=== PATIENT | male | born 1980 | race Caucasian/White ===

== ENCOUNTER 2019-05-20 07:40 | Outpatient (CLI) | payer MEDICARE, MEDICAID, SELFPAY ==
--- NOTE | 2019-05-20 07:53 | CT_ITS ---
WS: [id number] CT ABDOMEN NON-CONTRAST PLUS CONTRAST TECHNIQUE: Noncontrast CT of the abdomen and contrast-enhanced CT of the abdomen with coronal and sag ittal reformatted images. CLINICAL INFORMATION: RENAL MASS RIGHT COMPARISON: MRI DLP: [id number] scans at [facility] use at least one of these dose optimization techniques: automat ed exposure control; mA and/or kV adjustment per patient size (includes targeted exams where dose is matched to clinical indication); or iterative reconstruction. FINDINGS: Again seen is the right renal subcapsular fluid collection. This measures approximately 2.8 x 5.2 x 7 .7 cm AP by transverse by craniocaudal and measures slightly smaller compared to the prior lumbar spi ne MRI. This demonstrates increased attenuation on the noncontrast imaging and increased T1 signal on the prior MRI consistent with a subacute hemorrhagic collection. Prior MRI demonstrates hemosiderin rim about the collection. Mild compression of the renal parenchyma. Recommend urology consultation an d CT follow-up to exclude underlying hemorrhagic renal mass. No hydronephrosis. Normal left renal parenchymal enhancement. Both ureters are decompressed. Normal ureteral excretion.S mall left hepatic cyst measuring 10 mm. Liver is otherwise unremarkable. Normal gallbladder. Normal s pleen. Pancreas is normal. Normal caliber abdominal aorta. No abdominal lymphadenopathy. Slight atelectasis right lung base. CT/CT abdomen wo/w con [id number] IMPRESSION: 1. Hemorrhagic right subcapsular fluid collection measures slightly smaller co mpared to the prior MRI. Recommend urology consultation and short interval foll ow-up CT abdomen pelvis in 4-6 weeks to assess resolution and evaluate for unde rlying hemorrhagic renal mass. 2. Otherwise normal bilateral renal parenchymal enhancement with normal ureter al excretion on the delayed images. 3. Small left hepatic cyst. 4. No other acute abdominal findings.
[2019-05-20] MEDS: iohexol 300 mg/mL 100 mL Btl IV (09:01)
== END 2019-05-20 07:41 | disposition home or self-care (01) ==
LOC: RADWPI 07:49
PROVIDERS: Family Provider Physician Assistant Medical; PCP Physician Assistant Medical; Referring Provider Physician Assistant Medical; Visit Provider Licensed Practical Nurse
DX: N28.89 Other specified disorders of kidney and ureter (principal); K76.89 Other specified diseases of liver
CPT/HCPCS: 74170; Q9967

== ENCOUNTER → 2019-06-14 14:13 | Outpatient (BNVA) | payer MEDICARE, MEDICAID, SELFPAY | PROVIDERS: Family Provider Physician Assistant Medical; PCP Physician Assistant Medical; Visit Provider Anesthesiology | DX: M54.9 Dorsalgia, unspecified (principal); Z79.891 Long term (current) use of opiate analgesic | CPT/HCPCS: 99213; 99214 ==

== ENCOUNTER → 2019-09-23 07:28 | Outpatient (BNVA) | payer MEDICARE, MEDICAID, SELFPAY | PROVIDERS: Family Provider Physician Assistant Medical; PCP Physician Assistant Medical; Visit Provider Nurse Practitioner | DX: F41.1 Generalized anxiety disorder (principal); F42.2 Mixed obsessional thoughts and acts | CPT/HCPCS: 99214 ==

== ENCOUNTER 2019-09-26 09:45 | Outpatient (CLI) | payer MEDICARE, MEDICAID, SELFPAY ==
--- NOTE | 2019-09-26 09:30 | US_ITS ---
WS: [id number] RENAL ULTRASOUND HISTORY: HEMATOMA COMPARISON: 05/20/2019 CT. TECHNIQUE: 2-D and color Doppler imaging of the kidney submitted. Right kidney: 11.1 cm x 6.6 cm x 5.4 cm. Normal echogenicity with no hydronephrosis or mass. Previously seen subcapsular hematoma is no longer evident by ultrasound. Left kidney: 11.5 cm x 5.9 cm x 5.2 cm. Normal echogenicity with no hydronephrosis or mass. Aorta: Normal. Urinary Bladder: Normal distention. US/US renal BI* [id number] IMPRESSION: 1. Previously seen subcapsular hematoma on the RIGHT is no longer present. 2. No hydronephrosis or explanation for the patient's acute pain.
--- NOTE | 2019-09-26 12:30 | XR_ITS ---
WS: [id number] ABDOMEN KUB CLINICAL INFORMATION: Renal/ureteral calculi. COMPARISON: CT May 20, 2019 FINDINGS: Lumbar scoliosis convex left. No acute appearing compression fractures. 5 nonrib-bearing lumbar verte bral bodies. No visualized renal parenchymal or ureteral calculi. A few pelvic phleboliths. Normal [place] wel gas pattern. XR/XR KUB [id number] Impression: No visualized renal or ureteral calculi.
== END 2019-09-26 09:46 | disposition home or self-care (01) ==
LOC: RAD 09:52 → RADWPI 12:25
PROVIDERS: PCP Physician Assistant Medical; Visit Provider Urology
DX: R10.9 Unspecified abdominal pain (principal); S37.011A Minor contusion of right kidney, initial encounter; X58.XXXA Exposure to other specified factors, initial encounter
CPT/HCPCS: 74018; 76770; 81001

== ENCOUNTER → 2019-10-05 11:17 | Outpatient (BNVA) | payer MEDICARE, MEDICAID, SELFPAY | PROVIDERS: PCP Physician Assistant Medical; Referring Provider Physician Assistant Medical; Visit Provider Specialist | DX: R20.0 Anesthesia of skin (principal); R29.90 Unspecified symptoms and signs involving the nervous system; S06.9X9A Unspecified intracranial injury with loss of consciousness of unspecified duration, initial encounter; X58.XXXA Exposure to other specified factors, initial encounter; F32.9 Major depressive disorder, single episode, unspecified | CPT/HCPCS: 96116; 99205 ==

== ENCOUNTER → 2019-11-29 07:55 | Outpatient (BNVA) | payer MEDICARE, MEDICAID, SELFPAY | PROVIDERS: PCP Physician Assistant Medical; Visit Provider Nurse Practitioner | DX: F41.1 Generalized anxiety disorder (principal); F42.2 Mixed obsessional thoughts and acts | CPT/HCPCS: 99213 ==

== ENCOUNTER → 2019-12-06 09:24 | Outpatient (BNVA) | payer MEDICARE, MEDICAID, SELFPAY | PROVIDERS: PCP Physician Assistant Medical; Visit Provider Specialist | DX: S06.9X9A Unspecified intracranial injury with loss of consciousness of unspecified duration, initial encounter (principal); R20.0 Anesthesia of skin; M54.9 Dorsalgia, unspecified | CPT/HCPCS: 99213 ==

== ENCOUNTER 2019-12-07 08:34 | Outpatient (CLI) | payer MEDICARE, MEDICAID, SELFPAY ==
--- NOTE | 2019-12-07 09:00 | IR_ITS ---
WS: [id number] MYELOGRAM CERVICAL AND LUMBAR SPINE Fluoroscopic guided cervical myelogram CLINICAL INFORMATION: cervical pain, LUMBAR PAIN COMPARISON: None. TECHNIQUE: The procedure, including risks, benefits, and complications, were discussed with the patie nt who agreed to proceed. A timeout was performed to confirm correct patient, procedure, and site. Using sterile technique, the patient was prepped and draped in the usual sterile fashion. After admin istration of local anesthesia using 1% preservative-free lidocaine and using fluoroscopic guidance, a 22-gauge spinal needle was advanced into the subarachnoid space at the L4-5 level. Subsequently 13 c c of Omnipaque 300 was administered into the thecal sac. The needle was removed and hemostasis was ac hieved. Subsequently the table was tilted down and contrast flowed freely into the cervical spine. Sp ot fluoroscopic images were obtained. FLUOROSCOPIC TIME: 0.7 minutes. Spot fluoroscopic images demonstrate anterior cervical fusion C5-6. No instability on flexion-extensi on in the cervical spine. Mild to moderate lumbar curve convex left. Normal lumbar alignment on the n eutral view. No instability on flexion-extension. Mild chronic anterior wedging at T12. Please see CT myelogram report for additional detail. IR/IR myelogram spine cervic/lumb IMPRESSION: 1. Uncomplicated cervical and lumbar myelogram. 2. No instability on flexion-extension. 3. Please see CT for additional anatomic detail.
[2019-12-07] MEDS: iohexol 300 mg/mL 50 mL Btl INTRATHECA (09:42)
--- NOTE | 2019-12-07 11:00 | CT_ITS ---
WS: [id number] CT CERVICAL MYELOGRAM TECHNIQUE: CT of the cervical spine coronal and sagittal reformatted images post intrathecal administ ration of contrast. CLINICAL INFORMATION: cervical pain COMPARISON: None. DLP: 1458.[address] scans at [facility] use at least one of these dose optimization techniques: automat ed exposure control; mA and/or kV adjustment per patient size (includes targeted exams where dose is matched to clinical indication); or iterative reconstruction. FINDINGS: Straightening of the normal cervical lordosis. Mild cervical curve. Anterior cervical fusion C5-C6 wi th interbody fusion graft. Hardware appears well seated. No evidence of hardware loosening. C2-C3: No significant disc bulging. Spinal canal and foramen are patent. C3-C4: No significant disc bulging. Spinal canal and foramen are patent. C4-C5: Minimal disc bulging. Osteophytic ridging with mild left foraminal narrowing. Spinal canal is patent. C5-C6: Anterior interbody cervical fusion. Mild left bony foraminal narrowing. Right foramen is paten t. Spinal canal is patent. Mild facet arthropathy. C6-C7: Tiny central disc protrusion. Mild left and no significant right foraminal narrowing. Spinal c anal is patent. Mild facet arthropathy. C7-T1: No significant disc bulging. Spinal canal and foramen are patent. Visualized posterior fossa structures: Normal. CT/CT cervical spine w con [id number] IMPRESSION: 1. Straightening with slight reversal normal cervical lordosis. 2. Anterior interbody cervical fusion C5-C6 with interbody fusion graft. Hardw are appears well seated. 3. No significant central canal stenosis. 4. Mild bony foraminal narrowing described above.
--- NOTE | 2019-12-07 11:30 | CT_ITS ---
WS: [id number] CT LUMBAR SPINE TECHNIQUE: Contrast-enhanced CT of the lumbar spine with coronal and sagittal reformatted images. CLINICAL INFORMATION: lumbar pain COMPARISON: MRI 12 18,019 DLP: 1970.[address] scans at [facility] use at least one of these dose optimization techniques: automat ed exposure control; mA and/or kV adjustment per patient size (includes targeted exams where dose is matched to clinical indication); or iterative reconstruction. FINDINGS: Mild lumbar curve convex left. No acute compression fractures. No high-grade central canal stenosis. L1-L2: Normal. L2-L3: Normal. L3-L4: Disc osteophyte complex with endplate ridging. Slight effacement of ventral thecal sac. Slight narrowing of the subarticular recess bilaterally. Foramen are patent. Moderate facet arthropathy. L4-L5: Disc osteophyte complex with endplate ridging. Narrowing of the left greater than right subart icular recess. Mild left and no significant right foraminal narrowing. Mild facet arthropathy. L5-S1: Focal left disc osteophyte protrusion. This is similar in appearance to 2019. Impingement on t he traversing left S1 nerve root. Mild to moderate left and no significant right foraminal narrowing. Visualized pelvic bony structures: Normal. Paravertebral soft tissues: Normal. CT/CT lumbar spine w con [id number] IMPRESSION: 1. Mild lumbar curve. No acute compression. No high-grade central canal stenos is. 2. Left pericentral disc osteophyte protrusion L5-S1 impinges the traversing l eft S1 nerve root. Recommend correlation for left S1 nerve root symptoms. 3. Mild to moderate left L5-S1 foraminal narrowing. 4. Mild annular bulging L3-4 with slight narrowing of the subarticular recess bilaterally. 5. Left subarticular protrusion L4-5 impinges the traversing left L5 nerve lloyd t in the subarticular recess. Mild left L4-5 foraminal narrowing.
== END 2019-12-07 08:35 | disposition home or self-care (01) ==
LOC: RADWPI 08:43
PROVIDERS: Family Provider Physician Assistant Medical; PCP Physician Assistant Medical; Visit Provider Specialist
DX: M54.2 Cervicalgia (principal); M54.5 Low back pain; M25.78 Osteophyte, vertebrae; M48.07 Spinal stenosis, lumbosacral region; M43.22 Fusion of spine, cervical region
CPT/HCPCS: 62305; 72040; 72120; 72126; 72132; Q9967

== ENCOUNTER → 2019-12-19 08:50 | Outpatient (BNVA) | payer MEDICARE, MEDICAID, SELFPAY | PROVIDERS: Family Provider Physician Assistant Medical; PCP Physician Assistant Medical; Visit Provider Specialist | DX: M51.17 Intervertebral disc disorders with radiculopathy, lumbosacral region (principal); G56.23 Lesion of ulnar nerve, bilateral upper limbs; R20.0 Anesthesia of skin; M51.9 Unspecified thoracic, thoracolumbar and lumbosacral intervertebral disc disorder | CPT/HCPCS: 95913 ==

== ENCOUNTER → 2019-12-28 10:14 | Outpatient (BNVA) | payer MEDICARE, MEDICAID, SELFPAY | PROVIDERS: Family Provider Physician Assistant Medical; PCP Physician Assistant Medical; Visit Provider Specialist | DX: S06.9X9A Unspecified intracranial injury with loss of consciousness of unspecified duration, initial encounter (principal); F32.9 Major depressive disorder, single episode, unspecified; F07.81 Postconcussional syndrome | CPT/HCPCS: 95816 ==

== ENCOUNTER → 2020-04-04 10:06 | Outpatient (BNVA) | payer MEDICARE, MEDICAID, SELFPAY | PROVIDERS: Family Provider Physician Assistant Medical; PCP Physician Assistant Medical; Visit Provider Specialist | DX: S06.9X9D Unspecified intracranial injury with loss of consciousness of unspecified duration, subsequent encounter (principal); Y93.9 Activity, unspecified; R41.9 Unspecified symptoms and signs involving cognitive functions and awareness; G56.23 Lesion of ulnar nerve, bilateral upper limbs; F41.1 Generalized anxiety disorder; F81.9 Developmental disorder of scholastic skills, unspecified; Z87.891 Personal history of nicotine dependence | CPT/HCPCS: 96116; 99214 ==

== ENCOUNTER → 2020-04-16 08:05 | Outpatient (BNVA) | payer MEDICARE, MEDICAID, SELFPAY | PROVIDERS: Family Provider Physician Assistant Medical; PCP Physician Assistant Medical; Visit Provider Nurse Practitioner | DX: F41.1 Generalized anxiety disorder (principal); F42.2 Mixed obsessional thoughts and acts | CPT/HCPCS: 99213 ==

== ENCOUNTER 2020-04-18 10:38 | Outpatient (CLI) | payer MEDICARE, MEDICAID, SELFPAY ==
--- NOTE | 2020-04-18 11:00 | US_ITS ---
WS: [id number] ULTRASOUND ABDOMEN LIMITED CLINICAL INFORMATION: R10.9 - Unspecified abdominal pain COMPARISON: None. FINDINGS: Liver Size: Enlarged Craniocaudal length: 17.9 cm. Echogenicity: Normal. Surface nodularity: None. Mass (size and location): None. Bile ducts Intrahepatic ducts: Normal. Common bile duct diameter: 0.6 cm. Gallbladder Normal. Gallstones: None. Gallbladder sludge: None. Gallbladder wall thickening: None. Pericholecystic fluid: None. Sonographic Schafer sign: Absent. Pancreas Normal as visualized. Right kidney: Normal. Hydronephrosis: None. Size: 10.0 cm x 5.7 cm x 4.9 cm. Abdominal aorta and IVC Visualized portions are normal. Ascites: None. US/US gall bladder [id number] IMPRESSION: 1. Mild hepatomegaly. No intrahepatic biliary ductal dilatation. 2. Normal gallbladder. 3. No hydronephrosis in right kidney.
== END 2020-04-18 10:39 | disposition home or self-care (01) ==
PROVIDERS: Family Provider Physician Assistant Medical; PCP Physician Assistant Medical; Visit Provider Surgery
DX: R10.9 Unspecified abdominal pain (principal); R16.0 Hepatomegaly, not elsewhere classified
CPT/HCPCS: 76705

== ENCOUNTER 2020-06-01 07:17 | Outpatient (CLI) | payer MEDICARE, MEDICAID, SELFPAY ==
--- NOTE | 2020-06-01 08:00 | NM_ITS ---
WS: [id number] NUCLEAR MEDICINE HIDA SCAN CLINICAL INFORMATION: R10.11 - Right upper quadrant pain TECHNIQUE: Following intravenous administration of mCi of technetium 99m mebrofenin, images of the ab domen were obtained over the course of 60 minutes. Next, gallbladder ejection fraction was determined by obtaining preprandial and one-hour postprandial images of the gallbladder following oral ingestio n of Ensure. COMPARISON: None. FINDINGS: Hepatic uptake at 5 minutes. Normal hepatic excretion. Large Photopenic defect along the undersurface right hepatic lobe is nonspecific. This can be further evaluated with CT abdomen pelvis. Normal gallbladder filling at 15 minutes. No evidence of acute cholecystitis. Normal common bile duct activity. No evidence of choledocholithiasis. Gallbladder ejection fraction 95% within normal limits. No evidence of chronic cholecystitis. NM/NM hepatobiliary w phar* [id number] IMPRESSION: 1. No evidence of acute or chronic cholecystitis. 2. Gallbladder ejection fraction 95% within normal limits. 3. Photopenic defect along the undersurface right hepatic lobe is nonspecific and recommend further evaluation with contrast-enhanced CT abdomen pelvis to ev aluate for right hepatic cyst or liver lesion.
== END 2020-06-01 07:18 | disposition home or self-care (01) ==
LOC: RAD 07:21
PROVIDERS: PCP Physician Assistant Medical; Visit Provider Surgery
DX: R10.11 Right upper quadrant pain (principal)
CPT/HCPCS: 78227; 87635; A9537

== ENCOUNTER 2020-06-07 09:19 | Day surgery (SDC) | payer MEDICARE, MEDICAID, SELFPAY ==
[2020-06-05 15:31] VITALS: BMI 28.3
[2020-06-07 09:30] VITALS: BP 125/94; PULSE 54; RESP 16; TEMP 36.8; O2SAT 100
[2020-06-07] MEDS: sodium chloride 0.9% 1,000 ML 30 ML IV (09:59)
--- NOTE | 2020-06-07 10:06 | ANES.PREANE2 ---
Pre-Anesthetic Assessment Pre-Anesthetic Assessment: Height/Weight: Height 1.75 m Weight 87.09 kg Temp Pulse Resp BP Pulse Ox 98.2 F 54 L 16 125/94 100 06/07/20 09:30 06/07/20 09:30 06/07/20 09:30 06/07/20 09:30 06/07/20 09:30 Preop Diagnosis: upper gi symptoms Proposed Procedure: Operation Date: 06/07/20 10:15 Proposed Procedures p EGD 10248 K21.9(Not Applicable) - Leoncio Mejía MD Familial anesthetic complications: None Was Beta Forrest taken within 24 hours: Yes Last intake: Intake Last Liquid Date 06/06/20 Last Liquid Time 23:30 Last Solid Date 06/06/20 Last Solid Time 23:15 Social: Social History: No alcohol and No tobacco Exam: Pre-Anes Outpt Exam: alert, oriented x 3, clear to auscultation bilaterally and regular rate & rhythm Airway: MP: 3 Dentition: False CV/HEM: CV/HEM: HTN GI: GI: GERD Metabolic: Metabolic: Hyperlipidemia Neuropsych: Neuropsych: Neuropathy Comments: Traumatic brain injury Anesthetic Plan: ASA status: 3 Anesthesia: MAC Risk of > 500 ml blood loss (7ml/kg in children): No Meds/Allergies Current Medications: Current Medications Generic Name Dose Route Start Last Admin Trade Name Freq PRN Reason Stop Dose Admin Sodium Chloride 1,000 mls @ 30 ml s/hr 06/07/20 09:30 06/07/20 09:59 Sodium Chloride 0.9% IV 06/08/20 09:29 30 mls/hr .Q24H CARLA Administration PFSH Anesthesia PFSH: Medical History Essential (primary) hypertension Generalized anxiety disorder GERD (gastroesophageal reflux disease) Hx of fracture of clavicle (04/07/19) Intervertebral disc disorder with radiculopathy of lumbosacral region Lumbar disc disorder Lumbar stenosis with neurogenic claudication Mixed obsessional thoughts and acts Renal hematoma, right Status post amputation of finger left fourth finger Surgical History H/O circumcision H/O colonoscopy 2019 H/O neck surgery 2010 [facility] C5-C6 ACDFF Hx of tonsillectomy Family History Mother Diabetes Hypertension Hyperlipidemia Father CAD (coronary artery disease) Diabetes Hypertension Denies family history of Anesthesia complication Bleeding disorder Social History Smoking and tobacco status: former smoker Alcohol intake: never Household members: none Marital status: Single Current occupational status: disabled History of recent travel: No Data Anesthesia Cardiac Studies: No Data to Display
--- NOTE | 2020-06-07 10:46 | P.HP_ITS ---
Same Day Surgery H&P Indication for Procedure/HPI DATE OF PROCEDURE: June 07, 2020 CHIEF COMPLAINT/INDICATIONFOR SURGICAL PROCEDURE: egd for abdominal pain PREOP DIAGNOSIS: upper gi symptoms PLANNED PROCEDRUE: Operation Date: 06/07/20 10:15 Proposed Procedures p EGD 53154 K21.9(Not Applicable) - Leoncio Mejía MD Medications/Allergies* Home Medications Medication Instructions Recorded Confirmed Type metoprolol tartrate 100 mg tablet 100 mg PO .1/2 tablet bid PRN tab 05/27/19 06/07/20 History omeprazole 20 mg capsule,delayed 20 mg PO DAILY cap 05/27/19 06/07/20 History release pravastatin 40 mg tablet 40 mg PO DAILY 09/26/19 06/07/20 History sertraline [Zoloft] 100 mg PO DAILY 06/05/20 06/07/20 History Allergies/Adverse Reactions Allergy/AdvReac Type Severity Reaction Status Date / Time ketorolac [From Toradol] Allergy Unknown Verified 04/04/20 10:34 meperidine [From Demerol] Allergy RASH Verified 04/04/20 10:34 Penicillins Allergy RASH Verified 04/04/20 10:34 Sulfa (Sulfonamide Allergy Unknown Verified 04/04/20 10:34 Antibiotics) tramadol Allergy STOMACH Verified 04/04/20 10:34 PAIN Current Medications: Generic Name Dose Route Start Last Admin Trade Name Freq PRN Reason Stop Dose Admin Sodium Chloride 1,000 mls @ 30 mls/hr 06/07/20 09:30 06/07/20 09:59 Sodium Chloride 0.9% IV 06/08/20 09:29 30 mls/hr .Q24H CARLA Administration Pertinent History/Comorbid Conditions* Medical History (Updated 04/02/20 @ 10:20 by Leoncio Mejía MD) Essential (primary) hypertension Generalized anxiety disorder GERD (gastroesophageal reflux disease) Hx of fracture of clavicle (04/07/19) Intervertebral disc disorder with radiculopathy of lumbosacral region Lumbar disc disorder Lumbar stenosis with neurogenic claudication Mixed obsessional thoughts and acts Renal hematoma, right Status post amputation of finger left fourth finger Surgical History (Updated 04/02/20 @ 10:09 by Leoncio Mejía MD) H/O circumcision H/O colonoscopy 2019 H/O neck surgery 2010 [facility] C5-C6 ACDFF Hx of tonsillectomy Family History (Updated 04/02/20 @ 09:52 by Tahira Tesfaye LPN) Diabetes Mother Father CAD (coronary artery disease) Father Hyperlipidemia Mother Hypertension Mother Father Denies family history of Anesthesia complication Bleeding disorder Social History Smoking and tobacco status: former smoker Alcohol intake: never Household members: none Marital status: Single Current occupational status: disabled History of recent travel: No Pertinent Exam Findings alert, oriented x 3 and regular rate & rhythm Recommendations Surgery/Procedure today Coding Level of Care Code Acute Human Resources Training Manager for Kulwant Cooper
[2020-06-07 10:48] VITALS: RESP 16; O2SAT 97
[2020-06-07] MEDS: fentaNYL 50 mcg/mL INJ 2mL IVP (10:48)
[2020-06-07 11:28] VITALS: BP 112/63; PULSE 58; RESP 16; TEMP 36.4; O2SAT 96
[2020-06-07 11:42] VITALS: BP 122/83; PULSE 559; RESP 18; O2SAT 95
--- NOTE | 2020-06-07 14:47 | ANE.PACU2 ---
Inpatient post-anesthesia follow up: Airway intact: Yes Vital signs: Temperature 97.6 F Pulse Rate 559 Respiratory Rate 18 Blood Pressure 122/83 Pulse Oximetry 95 Oxygen Delivery Me thod Room Air Oxygen Flow Rate Fraction of Inspir ed Oxygen Hydration adequate: Yes Nausea and vomiting: No Pain level: 1 Mental status: Baseline
== END 2020-06-07 12:00 | disposition home or self-care (01) ==
PROVIDERS: PCP Physician Assistant Medical; Visit Provider Surgery
PROC: 0DJ08ZZ Inspection of Upper Intestinal Tract, Via Natural or Artificial Opening Endoscopic (ICD-10-PCS; CPT 43235; principal; 2020-06-07 10:15)
DX: K29.70 Gastritis, unspecified, without bleeding (principal); K44.9 Diaphragmatic hernia without obstruction or gangrene; R10.9 Unspecified abdominal pain; K21.9 Gastro-esophageal reflux disease without esophagitis; I10 Essential (primary) hypertension; F41.9 Anxiety disorder, unspecified; Z87.891 Personal history of nicotine dependence; E78.5 Hyperlipidemia, unspecified
CPT/HCPCS: 12345; 43239; 88305; J3010; J7030

== ENCOUNTER → 2020-07-19 10:45 | Outpatient (BNVA) | payer MEDICARE, MEDICAID, SELFPAY | PROVIDERS: PCP Physician Assistant Medical; Visit Provider Orthopaedic Surgery | DX: R20.0 Anesthesia of skin (principal); M51.9 Unspecified thoracic, thoracolumbar and lumbosacral intervertebral disc disorder; M48.062 Spinal stenosis, lumbar region with neurogenic claudication | CPT/HCPCS: 72110 ==

== ENCOUNTER → 2020-08-08 13:49 | Outpatient (BNVA) | payer MEDICARE, MEDICAID, SELFPAY | PROVIDERS: PCP Physician Assistant Medical; Visit Provider Specialist | DX: G56.23 Lesion of ulnar nerve, bilateral upper limbs (principal); S06.9X9A Unspecified intracranial injury with loss of consciousness of unspecified duration, initial encounter; Y93.9 Activity, unspecified; Z87.891 Personal history of nicotine dependence | CPT/HCPCS: 99213 ==

== ENCOUNTER 2020-08-09 09:56 | Outpatient (CLI) | payer MEDICARE, MEDICAID, SELFPAY ==
--- NOTE | 2020-08-09 09:59 | MR_ITS ---
WS: [id number] MRI LUMBAR SPINE NONCONTRAST HISTORY: M48.062 - Spinal stenosis, lumbar region with neurogenic claudication COMPARISON: 05/04/[address] 12/07/2019 TECHNIQUE: Sagittal and axial multisequence imaging is submitted. Prior anterior cervical fusion at C5-6. Very slight increase in the lumbar lordosis. No acute marrow edema or fracture. Mild disc desiccation without significant narrowing. Hypertrophic mild endplate osteophytosis through out the lumbar spine. Small nerve root sleeve diverticulum noted in the LEFT T11-12 foramen seen on t he sagittal views. Conus terminates normally at L1-2 disc level. L1-L2: Normal. L2-L3: Normal. L3-L4: Mild annular disc bulging with mild facet and ligamentum flavum hypertrophy. There is a centra l disc osteophyte which is slightly progressed since the prior study of 12/07/2019. Mild encroachment upon the ventral thecal sac with narrowing of the subarticular recesses. Mild bilateral foraminal rufina nosis. L4-L5: Mild annular disc bulging and osteophytic ridging. Mild ligamentum flavum hypertrophy. Shallow central disc osteophyte complex. Slightly greater narrowing of the LEFT subarticular recess as irene red to the RIGHT. Mild bilateral foraminal stenosis. L5-S1: Moderate to large disc osteophyte complex extending centrally into the LEFT lateral recess and subarticular foramen of L5-S1. Compression and deformity of the LEFT S1 nerve root. Similar in appea donna to prior studies. Mild LEFT foraminal narrowing otherwise. MR/MR lumbar spine wo con* [id number] IMPRESSION: 1. Moderate to large disc osteophyte complex at L5-S1 extending into the LEFT lateral recess and subarticular recess with significant encroachment and displa cement of the S1 nerve root. 2. Mild LEFT foraminal stenosis at L5-S1. 3. Central disc osteophyte complex at L3-4 with mild encroachment upon the the aram sac and narrowing of the subarticular recesses. Minimal progression of the disc osteophyte complex since the prior study. 4. Shallow central disc osteophyte complex at L4-5 with mild bilateral subarti cular recess narrowing, greatest on the LEFT.
== END 2020-08-09 09:57 | disposition home or self-care (01) ==
LOC: RADSHAW 09:58
PROVIDERS: PCP Physician Assistant Medical; Visit Provider Orthopaedic Surgery
DX: M48.062 Spinal stenosis, lumbar region with neurogenic claudication (principal); M25.78 Osteophyte, vertebrae; M48.07 Spinal stenosis, lumbosacral region
CPT/HCPCS: 72148

== ENCOUNTER → 2020-08-22 08:23 | Outpatient (BNVA) | payer MEDICARE, MEDICAID, SELFPAY | PROVIDERS: PCP Physician Assistant Medical; Referring Provider Orthopaedic Surgery; Visit Provider Anesthesiology Pain Medicine | DX: M54.9 Dorsalgia, unspecified (principal); M51.36 Other intervertebral disc degeneration, lumbar region; M54.16 Radiculopathy, lumbar region; M79.605 Pain in left leg | CPT/HCPCS: 99205 ==

== ENCOUNTER → 2020-09-13 09:56 | Outpatient (BNVA) | payer MEDICARE, MEDICAID, SELFPAY | PROVIDERS: PCP Physician Assistant Medical; Visit Provider Nurse Practitioner | DX: F42.2 Mixed obsessional thoughts and acts (principal); F41.1 Generalized anxiety disorder | CPT/HCPCS: 99214 ==

== ENCOUNTER → 2020-10-24 09:25 | Outpatient (BNVA) | payer MEDICARE, MEDICAID, SELFPAY | PROVIDERS: PCP Physician Assistant Medical; Visit Provider Nurse Practitioner | DX: F41.1 Generalized anxiety disorder (principal); F42.2 Mixed obsessional thoughts and acts; F33.1 Major depressive disorder, recurrent, moderate | CPT/HCPCS: 99214 ==

== ENCOUNTER → 2020-11-23 11:09 | Outpatient (BNVA) | payer MEDICARE, MEDICAID, SELFPAY | PROVIDERS: PCP Physician Assistant Medical; Visit Provider Nurse Practitioner | DX: F41.1 Generalized anxiety disorder (principal); F33.1 Major depressive disorder, recurrent, moderate; F42.2 Mixed obsessional thoughts and acts | CPT/HCPCS: 99214 ==

== ENCOUNTER → 2021-02-13 14:45 | Outpatient (BNVA) | payer MEDICARE, MEDICAID, SELFPAY | PROVIDERS: PCP Physician Assistant Medical; Visit Provider Specialist | DX: G56.23 Lesion of ulnar nerve, bilateral upper limbs; R51.9 Headache, unspecified; S06.9X9S Unspecified intracranial injury with loss of consciousness of unspecified duration, sequela; F41.1 Generalized anxiety disorder; Y93.9 Activity, unspecified | CPT/HCPCS: 99214 ==

== ENCOUNTER → 2021-05-28 15:02 | Outpatient (BNVA) | payer MEDICARE, MEDICAID, SELFPAY | PROVIDERS: PCP Physician Assistant Medical; Visit Provider Specialist | DX: M54.16 Radiculopathy, lumbar region; S06.9X9S Unspecified intracranial injury with loss of consciousness of unspecified duration, sequela; W17.89XS Other fall from one level to another, sequela; F33.1 Major depressive disorder, recurrent, moderate; F81.9 Developmental disorder of scholastic skills, unspecified | CPT/HCPCS: 99214 ==

== ENCOUNTER → 2021-05-31 13:08 | Outpatient (BNVA) | payer MEDICARE, MEDICAID, SELFPAY | PROVIDERS: PCP Physician Assistant Medical; Visit Provider Nurse Practitioner | DX: F33.1 Major depressive disorder, recurrent, moderate (principal); F41.1 Generalized anxiety disorder; F42.9 Obsessive-compulsive disorder, unspecified | CPT/HCPCS: 99214 ==

== ENCOUNTER → 2022-03-05 08:09 | Outpatient (BNVA) | payer MEDICARE, MEDICAID, SELFPAY | PROVIDERS: PCP Nurse Practitioner Family; Visit Provider Specialist | DX: G56.23 Lesion of ulnar nerve, bilateral upper limbs (principal); F07.81 Postconcussional syndrome; R41.89 Other symptoms and signs involving cognitive functions and awareness; G43.909 Migraine, unspecified, not intractable, without status migrainosus; H53.8 Other visual disturbances; F32.A Depression, unspecified; Z87.820 Personal history of traumatic brain injury | CPT/HCPCS: 99214 ==

== ENCOUNTER 2022-08-08 11:04 | Outpatient (CLI) | payer MEDICARE, MEDICAID, SELFPAY ==
--- NOTE | 2022-08-08 | MR_ITS ---
WS: [id number] MRI LUMBAR SPINE WITH CONTRAST TECHNIQUE: Sagittal T1, T2 and STIR imaging. Axial T1 and T2 imaging. Post gadolinium imaging was obt ained. CLINICAL INFORMATION: LUMBAR RADICULOPATHY COMPARISON: MRI July 20, 2020 FINDINGS: Mild lumbar curve. No acute compression. Pedicle screw fixation L5-S1 with interbody fusion graft. Pr ior postoperative changes LEFT L5-S1 hemilaminectomy. Postoperative changes are new since 2020. L1-L2: Normal. L2-L3: Mild facet arthropathy. Spinal canal and foramen are patent. L3-L4: Mild annular bulging. Shallow central disc protrusion with mild central canal stenosis. Slight impingement traversing L4 nerve roots bilaterally. Moderate facet arthropathy. Mild LEFT foraminal n arrowing. This appears similar compared to previous. L4-L5: Mild annular bulging. Slight impingement on the LEFT subarticular recess and traversing LEFT L 5 nerve root. Mild facet arthropathy. Mild LEFT greater than RIGHT foraminal narrowing. Mild facet ar thropathy. L5-S1: Postoperative changes hemilaminectomy with partial discectomy is new since previous. No eviden ce of recurrent disc extrusion. Mild LEFT bony foraminal narrowing. MR/MR lumbar spine wo/w con [id number] IMPRESSION: 1. Postoperative changes LEFT L5-S1 hemilaminectomy and partial discectomy new from previous. No evidence recurrent disc extrusion. Mild residual LEFT bony f oraminal narrowing. 2. Mild central canal stenosis L3-L4 due to shallow central disc protrusion wi th a small annular fissure. Impingement traversing L4 nerve roots bilaterally. This is similar in appearance to previous. 3. Mild annular bulging L4-L5 impinges the traversing LEFT L5 nerve root in th e subarticular recess with mild LEFT foraminal narrowing. 4. Mild LEFT L3-L4 and L4-L5 foraminal narrowing. 5. Moderate facet arthropathy L3-L4 and L4-L5.
== END 2022-08-08 11:05 | disposition home or self-care (01) ==
LOC: RAD 11:07
PROVIDERS: PCP Nurse Practitioner Family; Visit Provider Physician Assistant
DX: M54.16 Radiculopathy, lumbar region (principal); M47.896 Other spondylosis, lumbar region; M48.061 Spinal stenosis, lumbar region without neurogenic claudication; M51.26 Other intervertebral disc displacement, lumbar region; Z98.890 Other specified postprocedural states
CPT/HCPCS: 72158; A9577

== ENCOUNTER → 2022-09-12 09:58 | Outpatient (BNVA) | payer MEDICARE, MEDICAID, SELFPAY | PROVIDERS: PCP Family Medicine; Visit Provider Specialist | DX: G56.23 Lesion of ulnar nerve, bilateral upper limbs (principal); F07.81 Postconcussional syndrome; F41.1 Generalized anxiety disorder; Z65.3 Problems related to other legal circumstances | CPT/HCPCS: 99213 ==

== ENCOUNTER → 2023-03-10 10:24 | Outpatient (BNVA) | payer MEDICARE, MEDICAID, SELFPAY | PROVIDERS: PCP Family Medicine; Visit Provider Specialist | DX: F07.81 Postconcussional syndrome (principal); R20.0 Anesthesia of skin; M54.16 Radiculopathy, lumbar region; F41.1 Generalized anxiety disorder | CPT/HCPCS: 99214 ==

== ENCOUNTER → 2023-08-14 11:47 | Outpatient (BNVA) | payer MEDICARE, MEDICAID, SELFPAY | PROVIDERS: PCP Nurse Practitioner Family; Referring Provider Specialist; Visit Provider Specialist | DX: G56.23 Lesion of ulnar nerve, bilateral upper limbs (principal); S06.9X Unspecified intracranial injury; M51.17 Intervertebral disc disorders with radiculopathy, lumbosacral region; F41.1 Generalized anxiety disorder; F32.9 Major depressive disorder, single episode, unspecified; X58.XXXD Exposure to other specified factors, subsequent encounter | CPT/HCPCS: 95910; 95911; 99214; 99215 ==

== ENCOUNTER → 2023-11-13 12:19 | Outpatient (BNVA) | payer MEDICARE, MEDICAID, SELFPAY | PROVIDERS: PCP Nurse Practitioner Family; Referring Provider Nurse Practitioner Family; Visit Provider Specialist | DX: G56.23 Lesion of ulnar nerve, bilateral upper limbs; R03.0 Elevated blood-pressure reading, without diagnosis of hypertension; G43.711 Chronic migraine without aura, intractable, with status migrainosus | CPT/HCPCS: 99214 ==

== ENCOUNTER → 2023-12-02 15:18 | Outpatient (BNVA) | payer MEDICARE, MEDICAID, SELFPAY | PROVIDERS: PCP Nurse Practitioner Family; Visit Provider Specialist | DX: G56.23 Lesion of ulnar nerve, bilateral upper limbs (principal) | CPT/HCPCS: 73080; 99205 ==